=== PATIENT | male | born 1935 | race Caucasian/White ===

== ENCOUNTER 2017-11-11 09:07 | Inpatient (IN) | payer MEDICARE, MEDICAID ==
[~2017-11-11] VITALS: Ht 182.9 cm; Wt 93.4 kg
[2017-11-11] MEDS ORDERED: SUCR1TAB PO (09:49)
[2017-11-11] MEDS ORDERED: OMEP-110 PO (09:49)
[2017-11-11] MEDS ORDERED: AMIO100T4 PO (09:49)
[2017-11-11] MEDS ORDERED: TIZA4TAB PO (09:49)
[2017-11-11] MEDS ORDERED: OXYC10TA6 PO (09:49)
[2017-11-11] MEDS ORDERED: ACET650S21 PO (09:49)
[2017-11-11] MEDS ORDERED: MULT-658 PO (09:49)
[2017-11-11] MEDS ORDERED: ALBU18HF INH (09:49)
[2017-11-11] MEDS ORDERED: ASCO-96 PO (09:49)
[2017-11-11] MEDS ORDERED: POLY17PO5 PO (09:49)
[2017-11-11] MEDS ORDERED: RIVA20TA PO (09:49)
[2017-11-11] MEDS ORDERED: DOCU100C33 PO (09:49)
[2017-11-11] MEDS ORDERED: METF500T4 PO (09:49)
[2017-11-11] MEDS ORDERED: METO25TA35 PO (09:49)
[2017-11-11] MEDS ORDERED: MORPHINE SULFATE 4 MG/ML, 1ML ONE ×3 (09:54→13:30)
[2017-11-11] MEDS ORDERED: ONDANSETRON ODT 4 MG ONE (09:54)
[2017-11-11] MEDS: MORPHINE SULFATE 4 MG/ML, 1ML IVPush PRN ×3 (09:56→13:39)
[2017-11-11] MEDS ORDERED: ONDANSETRON ODT 4 MG PO ONE (10:00)
[2017-11-11 10:16] LABS: BASOPHILS # (AUTO) 0.02 x10^3/uL (0-0.1); BASOPHILS % (AUTO) 0 % (0-1); EOSINOPHILS # (AUTO) 0.02 x10^3/uL (0-0.4); EOSINOPHILS % (AUTO) 0 % (1-7); LYMPHOCYTES # (AUTO) 1.54 x10^3/uL (1-3.4); LYMPHOCYTES % (AUTO) 15 % (22-44); MD NO; MEAN CORPUSCULAR HEMOGLOBIN 30.1 pg (27.5-34.5); MEAN CORPUSCULAR HGB CONC 33.1 g/dL (33.2-36.2); MEAN CORPUSCULAR VOLUME 90.9 fL (81-97); MEAN PLATELET VOLUME 6.2 fL (7.4-10.4); MONOCYTES # (AUTO) 0.75 x10^3/uL (0.2-0.8); MONOCYTES % (AUTO) 7 % (2-9); NEUTROPHILS # (AUTO) 8.15 x10^3/uL (1.8-6.8); NEUTROPHILS % (AUTO) 78 % (42-75); PLATELET COUNT 344 x10^3/uL (130-400); RED BLOOD COUNT 4.02 x10^6/uL (4.38-5.82); RED CELL DISTRIBUTION WIDTH 14.6 % (9.4-14.8)
[2017-11-11 10:27] LABS: ALBUMIN 2.9 g/dL (3.4-5.0); ANION GAP 8 mmol/L (5-15); CALCIUM 8.8 mg/dL (8.5-10.1); CHLORIDE 111 mmol/L (98-107)
[2017-11-11 10:28] LABS: CREATININE 0.91 mg/dL (0.7-1.3)
[2017-11-11] MEDS ORDERED: SODIUM CHLORIDE FLUSH 10ML SYR IVF ONE (11:00)
[2017-11-11 12:40] LABS: MICROSCOPIC AUTO
[2017-11-11 12:41] LABS: CULTURE INDICATED? YES
[2017-11-11] MEDS ORDERED: ENALAPRILAT 1.25 MG/ML, 2ML IVPush PRN (13:00)
[2017-11-11] MEDS ORDERED: BISACODYL 10 MG SUPP PR PRN (13:00)
[2017-11-11] MEDS ORDERED: POLYETHYLENE GLYCOL 17 GM PACKET PO PRN (13:00)
[2017-11-11] MEDS ORDERED: ONDANSETRON 2MG/ML, 2ML IVPush PRN (13:00)
[2017-11-11] MEDS ORDERED: hydrALAzine 20 MG/ML, 1ML IVPush PRN (13:00)
[2017-11-11 13:17] LABS: FREE T4 (FREE THYROXINE) 1.45 ng/dL (0.76-1.46)
[2017-11-11] MEDS ORDERED: GADOBUTROL 10 MMOL/10 ML PFS ONE (14:41)
[2017-11-11] MEDS: OXYcodone IR 5MG TABLET PO PRN ×2 (16:57→20:55)
[2017-11-11] MEDS ORDERED: TIZANIDINE 4MG TABLET PO PRN (17:30)
[2017-11-11] MEDS ORDERED: HEPARIN 25,000 UNITS/500ML PMX 500 ML IV PRN (17:30)
[2017-11-11] MEDS ORDERED: HEPARIN 5,000 UNITS/ML, 1ML IV ONE (18:00)
[2017-11-11 19:20] VITALS: BP 125/67
[2017-11-11] MEDS: METOPROLOL TARTRATE 25 MG TABLET PO SCH (20:54)
[2017-11-11] MEDS: HEPARIN 25,000 UNITS/500ML PMX 500 ML IV PRN (20:57)
[2017-11-11] MEDS: SUCRALFATE 1 GM TABLET PO SCH (20:57)
[2017-11-11] MEDS: ALBUTEROL SULFATE 90 MCG INH SCH (21:00)
[2017-11-11] MEDS: DEXAMETHASONE 4 MG/ML, 1ML IVPush SCH (23:05)
[2017-11-12 00:55] VITALS: BP 150/74
[2017-11-12] MEDS: OXYcodone IR 5MG TABLET PO PRN ×4 (02:05→21:13)
[2017-11-12 03:32] LABS: BASOPHILS % (AUTO) 0 % (0-1); EOSINOPHILS # (AUTO) 0.02 x10^3/uL (0-0.4); EOSINOPHILS % (AUTO) 0 % (1-7); LYMPHOCYTES # (AUTO) 0.88 x10^3/uL (1-3.4); LYMPHOCYTES % (AUTO) 8 % (22-44); MD NO; MEAN CORPUSCULAR HEMOGLOBIN 30.5 pg (27.5-34.5); MEAN CORPUSCULAR HGB CONC 33.5 g/dL (33.2-36.2); MEAN CORPUSCULAR VOLUME 91.1 fL (81-97); MEAN PLATELET VOLUME 6.6 fL (7.4-10.4); MONOCYTES # (AUTO) 0.22 x10^3/uL (0.2-0.8); MONOCYTES % (AUTO) 2 % (2-9); NEUTROPHILS # (AUTO) 10.04 x10^3/uL (1.8-6.8); NEUTROPHILS % (AUTO) 90 % (42-75); PLATELET COUNT 321 x10^3/uL (130-400); RED BLOOD COUNT 4.09 x10^6/uL (4.38-5.82); RED CELL DISTRIBUTION WIDTH 14.4 % (9.4-14.8)
[2017-11-12 03:43] LABS: ANION GAP 8 mmol/L (5-15); CALCIUM 8.5 mg/dL (8.5-10.1); CHLORIDE 107 mmol/L (98-107); CREATININE 0.88 mg/dL (0.7-1.3)
[2017-11-12 03:52] LABS: THYROID STIMULATING HORMONE 0.489 mIU/L (0.358-3.740)
[2017-11-12] MEDS: HEPARIN 5,000 UNITS/ML, 1ML IV PRN ×3 (03:52→19:18)
[2017-11-12] MEDS: HEPARIN 25,000 UNITS/500ML PMX 500 ML IV PRN (03:55)
[2017-11-12] MEDS: DEXAMETHASONE 4 MG/ML, 1ML IVPush SCH ×2 (05:12→12:42)
[2017-11-12] MEDS: SUCRALFATE 1 GM TABLET PO SCH ×4 (06:00→21:12)
[2017-11-12] MEDS: OMEPRAZOLE 20 MG CAPSULE.DR PO SCH (07:30)
[2017-11-12 07:42] VITALS: BP 141/81
[2017-11-12] MEDS: ALBUTEROL SULFATE 90 MCG INH SCH ×2 (09:00→20:38)
[2017-11-12] MEDS: SENNA/DOCUSATE TABLET PO SCH (09:11)
[2017-11-12] MEDS: MULTIVITAMIN 1 TABLET PO SCH (09:12)
[2017-11-12] MEDS: ASCORBIC ACID 500 MG TABLET PO SCH (09:12)
[2017-11-12] MEDS: AMIODARONE 200 MG TABLET PO SCH (09:12)
[2017-11-12 13:12] VITALS: BP 141/75
[2017-11-12] MEDS: MORPHINE SULFATE 4 MG/ML, 1ML IVPush PRN (14:58)
[2017-11-12] MEDS ORDERED: ONDANSETRON 2MG/ML, 2ML IVPush PRN (16:08)
[2017-11-12] MEDS ORDERED: ONDANSETRON ODT 4 MG PO PRN (16:30)
[2017-11-12 18:43] VITALS: BP 108/55
[2017-11-12 20:59] VITALS: BP 136/75
[2017-11-12] MEDS: METOPROLOL TARTRATE 25 MG TABLET PO SCH (21:12)
[2017-11-13] MEDS: HEPARIN 25,000 UNITS/500ML PMX 500 ML IV PRN ×2 (00:05→21:24)
[2017-11-13] MEDS: MORPHINE SULFATE 4 MG/ML, 1ML IVPush PRN ×2 (01:48→08:05)
[2017-11-13 01:50] VITALS: BP 136/70
[2017-11-13 02:11] LABS: BASOPHILS # (AUTO) 0.01 x10^3/uL (0-0.1); BASOPHILS % (AUTO) 0 % (0-1); EOSINOPHILS % (AUTO) 0 % (1-7); LYMPHOCYTES # (AUTO) 1.12 x10^3/uL (1-3.4); LYMPHOCYTES % (AUTO) 8 % (22-44); MD NO; MEAN CORPUSCULAR HEMOGLOBIN 29.4 pg (27.5-34.5); MEAN CORPUSCULAR HGB CONC 32.3 g/dL (33.2-36.2); MEAN CORPUSCULAR VOLUME 91.2 fL (81-97); MEAN PLATELET VOLUME 6.7 fL (7.4-10.4); MONOCYTES # (AUTO) 0.52 x10^3/uL (0.2-0.8); MONOCYTES % (AUTO) 4 % (2-9); NEUTROPHILS # (AUTO) 13.17 x10^3/uL (1.8-6.8); NEUTROPHILS % (AUTO) 89 % (42-75); PLATELET COUNT 345 x10^3/uL (130-400); RED BLOOD COUNT 4.23 x10^6/uL (4.38-5.82); RED CELL DISTRIBUTION WIDTH 14.4 % (9.4-14.8)
[2017-11-13 02:22] LABS: ALBUMIN 2.9 g/dL (3.4-5.0); ANION GAP 7 mmol/L (5-15); CALCIUM 8.6 mg/dL (8.5-10.1); CHLORIDE 106 mmol/L (98-107); CREATININE 0.91 mg/dL (0.7-1.3)
[2017-11-13] MEDS: SUCRALFATE 1 GM TABLET PO SCH ×4 (05:13→20:32)
[2017-11-13 06:52] VITALS: BP 126/84
[2017-11-13] MEDS: AMIODARONE 200 MG TABLET PO SCH (08:04)
[2017-11-13] MEDS: ASCORBIC ACID 500 MG TABLET PO SCH (08:04)
[2017-11-13] MEDS: SENNA/DOCUSATE TABLET PO SCH (08:04)
[2017-11-13] MEDS: DOCUSATE 100 MG CAPSULE PO PRN ×2 (08:04→20:32)
[2017-11-13] MEDS: MULTIVITAMIN 1 TABLET PO SCH (08:04)
[2017-11-13] MEDS: OMEPRAZOLE 20 MG CAPSULE.DR PO SCH (08:10)
[2017-11-13] MEDS: ALBUTEROL SULFATE 90 MCG INH SCH ×2 (09:00→20:13)
[2017-11-13] MEDS ORDERED: VANCOMYCIN PER PHARMACY MC PRN (10:30)
[2017-11-13] MEDS ORDERED: PHARMACOKINETIC CONSULTATION MC ONE (11:00)
[2017-11-13] MEDS ORDERED: PHARMACOKINETIC MONITORING MC PRN (11:00)
[2017-11-13] MEDS: OXYcodone IR 5MG TABLET PO PRN ×3 (11:04→23:35)
[2017-11-13] MEDS: VANCOMYCIN 1,900 MG in SODIUM CHLORIDE 0.9% 250 ML IV SCH (11:54)
[2017-11-13 13:00] VITALS: BP 128/67
[2017-11-13 19:10] VITALS: BP 132/70
[2017-11-13] MEDS: METOPROLOL TARTRATE 25 MG TABLET PO SCH (20:32)
[2017-11-14 01:21] VITALS: BP 139/78
[2017-11-14] MEDS: OXYcodone IR 5MG TABLET PO PRN ×4 (04:35→22:37)
[2017-11-14 05:29] LABS: BASOPHILS # (AUTO) 0.02 x10^3/uL (0-0.1); BASOPHILS % (AUTO) 0 % (0-1); EOSINOPHILS # (AUTO) 0.19 x10^3/uL (0-0.4); EOSINOPHILS % (AUTO) 3 % (1-7); LYMPHOCYTES # (AUTO) 1.12 x10^3/uL (1-3.4); LYMPHOCYTES % (AUTO) 17 % (22-44); MD NO; MEAN CORPUSCULAR HEMOGLOBIN 30.7 pg (27.5-34.5); MEAN CORPUSCULAR HGB CONC 33.4 g/dL (33.2-36.2); MEAN CORPUSCULAR VOLUME 91.9 fL (81-97); MEAN PLATELET VOLUME 6.6 fL (7.4-10.4); MONOCYTES # (AUTO) 0.39 x10^3/uL (0.2-0.8); MONOCYTES % (AUTO) 6 % (2-9); NEUTROPHILS # (AUTO) 5.02 x10^3/uL (1.8-6.8); NEUTROPHILS % (AUTO) 74 % (42-75); PLATELET COUNT 265 x10^3/uL (130-400); RED BLOOD COUNT 3.74 x10^6/uL (4.38-5.82); RED CELL DISTRIBUTION WIDTH 14.6 % (9.4-14.8)
[2017-11-14 05:35] LABS: ALBUMIN 2.5 g/dL (3.4-5.0); ANION GAP 5 mmol/L (5-15); CALCIUM 7.9 mg/dL (8.5-10.1); CHLORIDE 111 mmol/L (98-107); CREATININE 0.83 mg/dL (0.7-1.3)
[2017-11-14] MEDS: SUCRALFATE 1 GM TABLET PO SCH ×4 (05:43→22:25)
[2017-11-14 06:50] VITALS: BP 154/75
[2017-11-14] MEDS: HEPARIN 5,000 UNITS/ML, 1ML IV PRN ×3 (08:15→22:25)
[2017-11-14] MEDS: ALBUTEROL SULFATE 90 MCG INH SCH ×2 (09:00→22:10)
[2017-11-14] MEDS: AMIODARONE 200 MG TABLET PO SCH (09:35)
[2017-11-14] MEDS: ASCORBIC ACID 500 MG TABLET PO SCH (09:36)
[2017-11-14] MEDS: SENNA/DOCUSATE TABLET PO SCH (09:36)
[2017-11-14] MEDS: OMEPRAZOLE 20 MG CAPSULE.DR PO SCH (11:13)
[2017-11-14] MEDS: MULTIVITAMIN 1 TABLET PO SCH (11:14)
[2017-11-14] MEDS: VANCOMYCIN 1,900 MG in SODIUM CHLORIDE 0.9% 250 ML IV SCH (11:16)
[2017-11-14 12:00] VITALS: BP 121/67
[2017-11-14] MEDS: HEPARIN 25,000 UNITS/500ML PMX 500 ML IV PRN (16:45)
[2017-11-14 19:03] VITALS: BP 101/54
[2017-11-14] MEDS: METOPROLOL TARTRATE 25 MG TABLET PO SCH (21:00)
[2017-11-15 01:50] VITALS: BP 128/67
[2017-11-15] MEDS: OXYcodone IR 5MG TABLET PO PRN ×5 (03:48→21:54)
[2017-11-15] MEDS: SUCRALFATE 1 GM TABLET PO SCH ×4 (05:58→21:53)
[2017-11-15 06:45] VITALS: BP 147/76
[2017-11-15] MEDS: ASCORBIC ACID 500 MG TABLET PO SCH (07:39)
[2017-11-15] MEDS: ALBUTEROL SULFATE 90 MCG INH SCH ×2 (07:39→21:00)
[2017-11-15] MEDS: MULTIVITAMIN 1 TABLET PO SCH (07:39)
[2017-11-15] MEDS: SENNA/DOCUSATE TABLET PO SCH (07:40)
[2017-11-15] MEDS: OMEPRAZOLE 20 MG CAPSULE.DR PO SCH (07:40)
[2017-11-15] MEDS: AMIODARONE 200 MG TABLET PO SCH (07:40)
[2017-11-15] MEDS ORDERED: WARFARIN BIOPROSTHETIC VALVE PROTOCOL 2-3 XX PRN (10:00)
[2017-11-15 10:39] LABS: INTERNATIONAL NORMALIZED RATIO 1.14 (0.93-1.1); PROTHROMBIN TIME 11.7 Seconds (9.6-11.5)
[2017-11-15] MEDS: HEPARIN 25,000 UNITS/500ML PMX 500 ML IV PRN (11:49)
[2017-11-15] MEDS: VANCOMYCIN 1,900 MG in SODIUM CHLORIDE 0.9% 250 ML IV SCH (11:56)
[2017-11-15 14:00] VITALS: BP 97/57
[2017-11-15] MEDS ORDERED: WARFARIN 5 MG TABLET PO-COUM ONE (18:00)
[2017-11-15 19:18] VITALS: BP 107/61
[2017-11-15] MEDS: ENOXAPARIN 100 MG/ML SQ SCH (21:53)
[2017-11-15] MEDS: METOPROLOL TARTRATE 25 MG TABLET PO SCH (21:53)
[2017-11-16 00:32] VITALS: BP 120/68
[2017-11-16 05:34] LABS: BASOPHILS # (AUTO) 0.03 x10^3/uL (0-0.1); BASOPHILS % (AUTO) 0 % (0-1); EOSINOPHILS # (AUTO) 0.21 x10^3/uL (0-0.4); EOSINOPHILS % (AUTO) 3 % (1-7); LYMPHOCYTES # (AUTO) 1.56 x10^3/uL (1-3.4); LYMPHOCYTES % (AUTO) 20 % (22-44); MD NO; MEAN CORPUSCULAR HEMOGLOBIN 30.1 pg (27.5-34.5); MEAN CORPUSCULAR VOLUME 91.1 fL (81-97); MEAN PLATELET VOLUME 6.7 fL (7.4-10.4); MONOCYTES # (AUTO) 0.57 x10^3/uL (0.2-0.8); MONOCYTES % (AUTO) 7 % (2-9); NEUTROPHILS # (AUTO) 5.58 x10^3/uL (1.8-6.8); NEUTROPHILS % (AUTO) 70 % (42-75); PLATELET COUNT 244 x10^3/uL (130-400); RED BLOOD COUNT 3.97 x10^6/uL (4.38-5.82); RED CELL DISTRIBUTION WIDTH 14.6 % (9.4-14.8)
[2017-11-16 05:41] LABS: ALBUMIN 2.6 g/dL (3.4-5.0); ANION GAP 5 mmol/L (5-15); CALCIUM 8.1 mg/dL (8.5-10.1); CHLORIDE 108 mmol/L (98-107); CREATININE 0.84 mg/dL (0.7-1.3)
[2017-11-16] MEDS ORDERED: VANCOMYCIN 1,900 MG in SODIUM CHLORIDE 0.9% 250 ML IV SCH (06:00)
[2017-11-16] MEDS: SUCRALFATE 1 GM TABLET PO SCH ×4 (06:10→21:00)
[2017-11-16 06:13] LABS: INTERNATIONAL NORMALIZED RATIO 1.13 (0.93-1.1); PROTHROMBIN TIME 11.6 Seconds (9.6-11.5)
[2017-11-16] MEDS: OXYcodone IR 5MG TABLET PO PRN ×4 (06:21→22:52)
[2017-11-16 08:05] VITALS: BP 103/61
[2017-11-16] MEDS: ALBUTEROL SULFATE 90 MCG INH SCH ×2 (09:07→20:56)
[2017-11-16] MEDS: OMEPRAZOLE 20 MG CAPSULE.DR PO SCH (09:40)
[2017-11-16] MEDS: ASCORBIC ACID 500 MG TABLET PO SCH (09:40)
[2017-11-16] MEDS: AMIODARONE 200 MG TABLET PO SCH (09:40)
[2017-11-16] MEDS: MULTIVITAMIN 1 TABLET PO SCH (09:40)
[2017-11-16] MEDS: SENNA/DOCUSATE TABLET PO SCH (09:41)
[2017-11-16] MEDS: ENOXAPARIN 100 MG/ML SQ SCH ×2 (09:41→21:00)
[2017-11-16 12:34] VITALS: BP 113/69
[2017-11-16 12:37] LABS: HCT (SEDRATE) 37.1 % (39.2-51.8)
[2017-11-16] MEDS: DAPTOMYCIN 500 MG in SODIUM CHLORIDE 0.9% 100 ML IV SCH (17:27)
[2017-11-16] MEDS ORDERED: WARFARIN 5 MG TABLET PO-COUM ONE (18:00)
[2017-11-16 19:12] VITALS: BP 114/68
[2017-11-16] MEDS: METOPROLOL TARTRATE 25 MG TABLET PO SCH (21:00)
[2017-11-17 02:40] VITALS: BP 103/60
[2017-11-17] MEDS: OXYcodone IR 5MG TABLET PO PRN ×2 (05:41→20:38)
[2017-11-17] MEDS: SUCRALFATE 1 GM TABLET PO SCH ×4 (05:41→20:38)
[2017-11-17 06:25] LABS: INTERNATIONAL NORMALIZED RATIO 1.15 (0.93-1.1); PROTHROMBIN TIME 11.8 Seconds (9.6-11.5)
[2017-11-17] MEDS: OMEPRAZOLE 20 MG CAPSULE.DR PO SCH (07:30)
[2017-11-17] MEDS: ALBUTEROL SULFATE 90 MCG INH SCH ×2 (07:40→20:39)
[2017-11-17 08:00] VITALS: BP 111/59
[2017-11-17] MEDS: ENOXAPARIN 100 MG/ML SQ SCH ×2 (08:30→20:38)
[2017-11-17] MEDS: AMIODARONE 200 MG TABLET PO SCH (08:51)
[2017-11-17] MEDS: ASCORBIC ACID 500 MG TABLET PO SCH (08:51)
[2017-11-17] MEDS: MULTIVITAMIN 1 TABLET PO SCH (08:51)
[2017-11-17] MEDS: SENNA/DOCUSATE TABLET PO SCH (08:52)
[2017-11-17] MEDS ORDERED: OXYcodone IR 5MG TABLET PO PRN (11:00)
[2017-11-17 14:00] VITALS: BP 130/84
[2017-11-17] MEDS: DAPTOMYCIN 500 MG in SODIUM CHLORIDE 0.9% 100 ML IV SCH (16:30)
[2017-11-17] MEDS ORDERED: WARFARIN 5 MG TABLET PO-COUM SCH (18:00)
[2017-11-17 19:44] VITALS: BP 100/61
[2017-11-17] MEDS: METOPROLOL TARTRATE 25 MG TABLET PO SCH (20:39)
[2017-11-18 01:30] VITALS: BP 110/67
[2017-11-18] MEDS: ACETAMINOPHEN 325 MG TABLET PO PRN ×2 (01:54→05:56)
[2017-11-18] MEDS: OXYcodone IR 5MG TABLET PO PRN ×4 (02:42→22:18)
[2017-11-18 05:10] LABS: INTERNATIONAL NORMALIZED RATIO 1.18 (0.93-1.1); PROTHROMBIN TIME 12.1 Seconds (9.6-11.5)
[2017-11-18] MEDS: SUCRALFATE 1 GM TABLET PO SCH ×4 (05:56→20:44)
[2017-11-18] MEDS: ALBUTEROL SULFATE 90 MCG INH SCH ×2 (07:24→20:36)
[2017-11-18] MEDS: ASCORBIC ACID 500 MG TABLET PO SCH (09:41)
[2017-11-18] MEDS: AMIODARONE 200 MG TABLET PO SCH (09:42)
[2017-11-18] MEDS: SENNA/DOCUSATE TABLET PO SCH (09:42)
[2017-11-18] MEDS: OMEPRAZOLE 20 MG CAPSULE.DR PO SCH (09:42)
[2017-11-18] MEDS: MULTIVITAMIN 1 TABLET PO SCH (09:42)
[2017-11-18] MEDS: ENOXAPARIN 100 MG/ML SQ SCH ×2 (09:43→20:45)
[2017-11-18 09:46] VITALS: BP 116/73
[2017-11-18] MEDS ORDERED: ACETAMINOPHEN 500 MG TABLET PO PRN (10:30)
[2017-11-18] MEDS: TIZANIDINE 4MG TABLET PO PRN (11:52)
[2017-11-18 13:32] VITALS: BP 118/71
[2017-11-18] MEDS: DAPTOMYCIN 500 MG in SODIUM CHLORIDE 0.9% 100 ML IV SCH (16:10)
[2017-11-18] MEDS ORDERED: WARFARIN 10 MG TABLET PO-COUM SCH (18:00)
[2017-11-18] MEDS: ACETAMINOPHEN 500 MG TABLET PO PRN (18:01)
[2017-11-18 18:28] VITALS: BP 107/70
[2017-11-18] MEDS: METOPROLOL TARTRATE 25 MG TABLET PO SCH (20:41)
[2017-11-19] MEDS: ACETAMINOPHEN 500 MG TABLET PO PRN ×2 (00:11→06:12)
[2017-11-19] MEDS: TIZANIDINE 4MG TABLET PO PRN (00:12)
[2017-11-19 01:06] VITALS: BP 110/65
[2017-11-19] MEDS: OXYcodone IR 5MG TABLET PO PRN ×2 (04:33→11:47)
[2017-11-19 05:01] LABS: INTERNATIONAL NORMALIZED RATIO 1.37 (0.93-1.1)
[2017-11-19 05:04] LABS: BASOPHILS # (AUTO) 0.06 x10^3/uL (0-0.1); BASOPHILS % (AUTO) 1 % (0-1); EOSINOPHILS # (AUTO) 0.14 x10^3/uL (0-0.4); EOSINOPHILS % (AUTO) 2 % (1-7); LYMPHOCYTES # (AUTO) 1.85 x10^3/uL (1-3.4); LYMPHOCYTES % (AUTO) 31 % (22-44); MD NO; MEAN CORPUSCULAR VOLUME 91.1 fL (81-97); MONOCYTES # (AUTO) 0.65 x10^3/uL (0.2-0.8); MONOCYTES % (AUTO) 11 % (2-9); NEUTROPHILS # (AUTO) 3.27 x10^3/uL (1.8-6.8); NEUTROPHILS % (AUTO) 55 % (42-75); PLATELET COUNT 223 x10^3/uL (130-400); RED BLOOD COUNT 4.13 x10^6/uL (4.38-5.82); RED CELL DISTRIBUTION WIDTH 14.9 % (9.4-14.8)
[2017-11-19 05:06] LABS: ALBUMIN 2.7 g/dL (3.4-5.0); ANION GAP 5 mmol/L (5-15); CALCIUM 8.6 mg/dL (8.5-10.1); CHLORIDE 111 mmol/L (98-107)
[2017-11-19 05:10] LABS: ALANINE AMINOTRANSFERASE 32 U/L (12-78); ALKALINE PHOSPHATASE 76 U/L (45-117); BILIRUBIN,TOTAL 0.3 mg/dL (0.2-1.0); CREATININE 0.78 mg/dL (0.7-1.3); TOTAL PROTEIN 6.4 g/dL (6.4-8.2)
[2017-11-19] MEDS: SUCRALFATE 1 GM TABLET PO SCH ×2 (06:12→11:47)
[2017-11-19 06:43] VITALS: BP 102/62
[2017-11-19] MEDS: AMIODARONE 200 MG TABLET PO SCH (08:28)
[2017-11-19] MEDS: SENNA/DOCUSATE TABLET PO SCH (08:29)
[2017-11-19] MEDS: MULTIVITAMIN 1 TABLET PO SCH (08:29)
[2017-11-19] MEDS: ASCORBIC ACID 500 MG TABLET PO SCH (08:29)
[2017-11-19] MEDS: ENOXAPARIN 100 MG/ML SQ SCH (08:29)
[2017-11-19] MEDS: OMEPRAZOLE 20 MG CAPSULE.DR PO SCH (08:42)
[2017-11-19] MEDS: ALBUTEROL SULFATE 90 MCG INH SCH (09:00)
[2017-11-19 13:13] VITALS: BP 137/72
[2017-11-19] MEDS ORDERED: WARFARIN 10 MG TABLET PO-COUM SCH (18:00)
== END 2017-11-19 15:02 | disposition left against medical advice (07) | DRG 551 ==
LOC: ED 12:41 → EDIP 12:42 → ED 12:57 → 3NE 15:24
PROVIDERS: ADMIT Hospitalist; ATTEND Hospitalist
DX: M48.061 Spinal stenosis, lumbar region without neurogenic claudication (principal); E43 Unspecified severe protein-calorie malnutrition; I82.412 Acute embolism and thrombosis of left femoral vein; I48.91 Unspecified atrial fibrillation; D63.8 Anemia in other chronic diseases classified elsewhere; E11.9 Type 2 diabetes mellitus without complications; N39.0 Urinary tract infection, site not specified; G89.29 Other chronic pain; D32.9 Benign neoplasm of meninges, unspecified; I10 Essential (primary) hypertension; D36.17 Benign neoplasm of peripheral nerves and autonomic nervous system of trunk, unspecified; H35.30 Unspecified macular degeneration; K21.9 Gastro-esophageal reflux disease without esophagitis; K59.00 Constipation, unspecified; M46.1 Sacroiliitis, not elsewhere classified; M47.816 Spondylosis without myelopathy or radiculopathy, lumbar region; M51.36 Other intervertebral disc degeneration, lumbar region; N50.3 Cyst of epididymis; Z66 Do not resuscitate; Z79.01 Long term (current) use of anticoagulants; Z79.891 Long term (current) use of opiate analgesic; Z82.49 Family history of ischemic heart disease and other diseases of the circulatory system; Z82.5 Family history of asthma and other chronic lower respiratory diseases; Z86.718 Personal history of other venous thrombosis and embolism; Z96.652 Presence of left artificial knee joint; Z68.27 Body mass index [BMI] 27.0-27.9, adult
CPT/HCPCS: 36415; 72110; 72157; 72158; 72192; 72196; 72220; 76870; 80048; 80053; 80202; 81001; 81374; 82040; 82550; 82962; 83735; 84100; 84439; 84443; 85025; 85520; 85610; 85651; 86140; 86200; 86431; 86622; 87040; 87077; 87086; 87186; 93005; 93306; 93970; 96374; 96376; A9585; J0878; J1100; J1644; J1650; J3370; Q0162; J7050